=== PATIENT | male | born 1955 | race Caucasian/White ===

== ENCOUNTER 2022-01-19 19:48 | Emergency (ER) | payer MEDICARE, OTHER ==
[2022-01-19] MEDS ORDERED: Lidocaine/EPINEPHrine/Tetracaine Soln 1 ML TOP ONE (20:15)
[2022-01-19] MEDS ORDERED: Diphtheria,Pertussis(Acell),Tetanus Vaccine 0.5 ML Syringe IM ONE (20:23)
[2022-01-19] MEDS ORDERED: Lidocaine 1% 10 ML MDV INJECT ONE (20:23)
== END 2022-01-19 21:45 ==
LOC: JD.ED 19:48
DX: S01.112A Laceration without foreign body of left eyelid and periocular area, initial encounter (principal); Z23 Encounter for immunization; W18.09XA Striking against other object with subsequent fall, initial encounter
CPT/HCPCS: 12013; 70450; 70450-26; 90471; 90715; 99283; 99283-25